=== PATIENT | male | born 1980 | race American Indian/Alaskan Native ===

== ENCOUNTER 2018-09-15 20:52 | Emergency (ER) | payer OTHER ==
[2018-09-15 21:14] VITALS: BP 163/94
[2018-09-15] MEDS ORDERED: TYLENOL ONE (21:14)
[2018-09-15] MEDS ORDERED: TYLENOL PO ONE (21:17)
[2018-09-16] MEDS ORDERED: NORCO 5/325 PO STA (00:31)
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
--- NOTE | 2018-09-16 01:00 | XRay Report ---
FINAL REPORT EXAM: XR ABD SERIES W CXR 1V HISTORY: constipation abd pain TECHNIQUE: A PA view of the chest was obtained along with three views of the abdomen and pelvis. FINDINGS: The heart size and mediastinum appear normal. The lungs are clear. Pleural fluid is not seen. There is a moderate amount retained fecal content throughout the colon but particularly in the ascend ing and proximal transverse colon. The bowel gas pattern otherwise is unremarkable. There are no susp icious calcifications. The skeletal structures reveal a dextroscoliosis of the thoracolumbar junction . IMPRESSION: No acute process in the chest. Moderate amount retained fecal content. No acute process identified otherwise.
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
== END 2018-09-16 03:19 | disposition home or self-care (01) ==
LOC: ED 20:52
DX: S16.1XXA Strain of muscle, fascia and tendon at neck level, initial encounter (principal); M79.10 Myalgia, unspecified site; V49.49XA Driver injured in collision with other motor vehicles in traffic accident, initial encounter; Y93.89 Activity, other specified; Y92.488 Other paved roadways as the place of occurrence of the external cause; Y99.8 Other external cause status
CPT/HCPCS: 70450; 72125; 74022; 99284